=== PATIENT | male | born 1990 | race African-American/Black ===

== ENCOUNTER 2018-10-06 11:17 | Inpatient (IN) | payer MEDICAID ==
[~2018-10-06] VITALS: Ht 170.2 cm; Wt 72.6 kg
[2018-10-06 11:22] VITALS: BP_SYST 139
[2018-10-06] MEDS ORDERED: levETIRAcetam 1,000 MG in NS 100 ML IV ONE (11:45)
[2018-10-06] MEDS ORDERED: LORazepam 2 MG/ML VIAL (FOR ER USE) IVP ONE (12:00)
[2018-10-06 12:05] LABS: BASOPHILS % (AUTO) 0.3 % (0.0-2.0); EOSINOPHILS % (AUTO) 0.2 % (0.0-4.0); HEMATOCRIT 47.8 % (36-54); HEMOGLOBIN 14.6 g/dL (14.0-18.0); LYMPHOCYTES # (AUTO) 0.5 K/uL (1.0-5.5); LYMPHOCYTES % (AUTO) 5.7 % (20.5-51.5); MEAN CORPUSCULAR HEMOGLOBIN 24 pg (27-31); MEAN CORPUSCULAR HGB CONC 31 % (32-36); MEAN CORPUSCULAR VOLUME 78 fL (79.0-98.0); MONOCYTES # (AUTO) 0.2 K/uL (0.0-1.0); MONOCYTES % (AUTO) 1.7 % (1.7-9.3); NEUTROPHILS # (AUTO) 8.6 K/uL (1.8-7.7); NEUTROPHILS % (AUTO) 92.1 % (40.0-70.0); PLATELET COUNT (AUTO) 236 K/uL (130-430); RED BLOOD CELL COUNT(AUTO) 6.13 MIL/uL (4.2-6.2); RED CELL DISTRIBUTION WIDTH 12.7 % (9.0-15.0); WHITE BLOOD COUNT (AUTO) 9.3 K/uL (4.8-10.8)
[2018-10-06] MEDS ORDERED: LORazepam 2 MG/ML VIAL (FOR ER USE) ONE (12:06)
[2018-10-06 12:09] LABS: CALCIUM 9.6 mg/dL (8.4-11.0); CREATININE 1.47 mg/dL (0.55-1.30); POTASSIUM 5.4 mmol/L (3.5-5.1)
[2018-10-06 12:14] LABS: ALBUMIN 4.5 g/dL (3.4-4.8); TOTAL BILIRUBIN 0.7 mg/dL (0.0-1.0)
[2018-10-06] MEDS ORDERED: LORazepam 2 MG/ML VIAL IVP PRN (14:30)
[2018-10-06 14:44] VITALS: BP_SYST 109
[2018-10-06] MEDS: D5NS 1,000 ML IV SCH (16:07)
[2018-10-06] MEDS ORDERED: levETIRAcetam 500 MG TABLET PO ONE (18:00)
[2018-10-06 20:00] VITALS: BP_SYST 128
[2018-10-06] MEDS ORDERED: levETIRAcetam 1,000 MG in NS 100 ML IV SCH (21:00)
[2018-10-07 00:28] VITALS: BP_SYST 104
[2018-10-07] MEDS: D5NS 1,000 ML IV SCH ×2 (04:56→14:55)
[2018-10-07 08:00] VITALS: BP_SYST 128
[2018-10-07] MEDS: levETIRAcetam 1,000 MG in NS 100 ML IV SCH ×2 (08:39→21:09)
[2018-10-07] MEDS ORDERED: levETIRAcetam 1,000 MG in NS 100 ML IV SCH (09:00)
[2018-10-07 11:17] LABS: BASOPHILS # (AUTO) 0.1 K/uL (0.0-0.2); BASOPHILS % (AUTO) 1.9 % (0.0-2.0); EOSINOPHILS % (AUTO) 0.5 % (0.0-4.0); HEMATOCRIT 38.4 % (36-54); HEMOGLOBIN 11.8 g/dL (14.0-18.0); LYMPHOCYTES # (AUTO) 1.5 K/uL (1.0-5.5); LYMPHOCYTES % (AUTO) 25.4 % (20.5-51.5); MEAN CORPUSCULAR HEMOGLOBIN 24 pg (27-31); MEAN CORPUSCULAR HGB CONC 31 % (32-36); MEAN CORPUSCULAR VOLUME 77 fL (79.0-98.0); MONOCYTES # (AUTO) 0.3 K/uL (0.0-1.0); MONOCYTES % (AUTO) 4.4 % (1.7-9.3); NEUTROPHILS % (AUTO) 67.8 % (40.0-70.0); PLATELET COUNT (AUTO) 190 K/uL (130-430); RED BLOOD CELL COUNT(AUTO) 4.97 MIL/uL (4.2-6.2); RED CELL DISTRIBUTION WIDTH 12.3 % (9.0-15.0); WHITE BLOOD COUNT (AUTO) 5.9 K/uL (4.8-10.8)
[2018-10-07 11:30] LABS: CALCIUM 8.6 mg/dL (8.4-11.0); CREATININE 1.05 mg/dL (0.55-1.30); POTASSIUM 3.9 mmol/L (3.5-5.1)
[2018-10-07 11:34] LABS: ALBUMIN 3.4 g/dL (3.4-4.8); TOTAL BILIRUBIN 1.5 mg/dL (0.0-1.0)
[2018-10-07 12:24] VITALS: BP_SYST 123
[2018-10-07 16:13] VITALS: BP_SYST 132
[2018-10-07 19:41] VITALS: BP_SYST 120
[2018-10-08] MEDS: D5NS 1,000 ML IV SCH ×2 (00:19→07:45)
[2018-10-08 00:33] VITALS: BP_SYST 118
[2018-10-08 04:42] LABS: BARBITURATE, URINE NEGATIVE (NEG <=200); BENZODIAZEPINE, URINE POSITIVE (NEG <=150); CANNABINOID, URINE POSITIVE (NEG <=50); COCAINE, URINE NEGATIVE (NEG <=150); METHAMPHETAMINES SCREEN,URINE NEGATIVE (NEG <=500); OPIATE, URINE NEGATIVE (NEG <=100); PHENCYCLIDINE SCREEN,URINE NEGATIVE (NEG <=25); UR TRICYCLIC ANTIDEPRESSANTS NEGATIVE (NEG <=300); URINE AMPHETAMINE NEGATIVE (NEG <=500); URINE METHADONE NEGATIVE (NEG <=200); URINE OXYCODONE SCREEN NEGATIVE (NEG <=100); URINE PROPOXYPHENE SCREEN NEGATIVE (NEG <=300)
[2018-10-08] MEDS: levETIRAcetam 1,000 MG in NS 100 ML IV SCH (08:11)
[2018-10-08 08:29] VITALS: BP_SYST 130
[2018-10-08 09:48] VITALS: BP_SYST 130
[2018-10-08] MEDS ORDERED: LEVE1000 PO (09:51)
== END 2018-10-08 10:15 | disposition home or self-care (01) | DRG 53 ==
LOC: SED 11:17 → SMU 14:17
PROVIDERS: ADMIT Internal Medicine Hospice and Palliative Medicine; ATTEND Internal Medicine Hospice and Palliative Medicine
DX: G40.909 Epilepsy, unspecified, not intractable, without status epilepticus (principal); E87.5 Hyperkalemia; F12.10 Cannabis abuse, uncomplicated; Z91.14 Patient's other noncompliance with medication regimen
CPT/HCPCS: 36415; 70450-TC; 70551; 80053; 80307; 85025; 95816; 96365; 96375; 99285; J1953; J2060; J7042

== ENCOUNTER 2019-02-08 17:13 | Emergency (ER) | payer SELFPAY ==
[~2019-02-08] VITALS: Ht 172.7 cm; Wt 68.0 kg
[~2019-02-08 17:13] MED LIST: LEVE1000 PO
[2019-02-08 17:15] VITALS: BP_SYST 115
[2019-02-08 17:34] LABS: BASOPHILS # (AUTO) 0.1 K/uL (0.0-0.2); BASOPHILS % (AUTO) 0.7 % (0.0-2.0); EOSINOPHILS % (AUTO) 0.2 % (0.0-4.0); HEMATOCRIT 47.5 % (36-54); HEMOGLOBIN 14.2 g/dL (14.0-18.0); LYMPHOCYTES # (AUTO) 1.8 K/uL (1.0-5.5); MEAN CORPUSCULAR HEMOGLOBIN 24 pg (27-31); MEAN CORPUSCULAR HGB CONC 30 % (32-36); MEAN CORPUSCULAR VOLUME 79 fL (79.0-98.0); MONOCYTES # (AUTO) 0.3 K/uL (0.0-1.0); NEUTROPHILS # (AUTO) 8.4 K/uL (1.8-7.7); NEUTROPHILS % (AUTO) 79.1 % (40.0-70.0); PLATELET COUNT (AUTO) 243 K/uL (130-430); RED BLOOD CELL COUNT(AUTO) 6.04 MIL/uL (4.2-6.2); RED CELL DISTRIBUTION WIDTH 13.6 % (9.0-15.0); WHITE BLOOD COUNT (AUTO) 10.7 K/uL (4.8-10.8)
[2019-02-08 17:49] LABS: CALCIUM 9.3 mg/dL (8.4-11.0); CREATININE 1.79 mg/dL (0.55-1.30); POTASSIUM 4.2 mmol/L (3.5-5.1)
[2019-02-08 17:55] LABS: ALBUMIN 4.2 g/dL (3.4-4.8); TOTAL BILIRUBIN 0.8 mg/dL (0.0-1.0)
[2019-02-08] MEDS ORDERED: KETOROLAC TROMETHAMINE 30 MG VIAL IVP ONE (18:30)
[2019-02-08] MEDS ORDERED: ONDANSETRON HCL 4 MG/2 ML VIAL IVP ONE (18:30)
[2019-02-08] MEDS ORDERED: PHENYTOIN SODIUM INJ 500 MG in NS 100 ML IV ONE (18:45)
[2019-02-08 18:53] LABS: BARBITURATE, URINE NEGATIVE (NEG <=200); BENZODIAZEPINE, URINE NEGATIVE (NEG <=150); CANNABINOID, URINE POSITIVE (NEG <=50); COCAINE, URINE NEGATIVE (NEG <=150); METHAMPHETAMINES SCREEN,URINE NEGATIVE (NEG <=500); OPIATE, URINE NEGATIVE (NEG <=100); PHENCYCLIDINE SCREEN,URINE NEGATIVE (NEG <=25); UR TRICYCLIC ANTIDEPRESSANTS NEGATIVE (NEG <=300); URINE AMPHETAMINE NEGATIVE (NEG <=500); URINE METHADONE NEGATIVE (NEG <=200); URINE OXYCODONE SCREEN NEGATIVE (NEG <=100); URINE PROPOXYPHENE SCREEN NEGATIVE (NEG <=300)
[2019-02-08] MEDS ORDERED: PHENYTOIN SODIUM 250 MG/5 ML INJ. VIAL IV ONE (19:00)
[2019-02-08 19:55] VITALS: BP_SYST 107
== END 2019-02-08 19:55 | disposition home or self-care (01) ==
LOC: SED 17:13
DX: G40.802 Other epilepsy, not intractable, without status epilepticus (principal)
CPT/HCPCS: 36415; 70450; 80053; 80307; 85025; 96365; 96375; 99284; J1165; J1885; J2405

== ENCOUNTER 2019-03-04 14:24 | Emergency (ER) | payer SELFPAY ==
[~2019-03-04] VITALS: Ht 172.7 cm; Wt 79.4 kg
[2019-03-04 14:34] VITALS: BP_SYST 137
--- NOTE | 2019-03-04 14:35 | NUR ---
Pt placed in bed 3
--- NOTE | 2019-03-04 14:36 | NUR ---
Patient arrived via POV, AAOx4, and ambulatory with steady gait. Patient arrived regarding refill of depakote. She states she ran out of refills, and is unable to get into her neurologist for a "few weeks." States last dose was taken yesterday. Patient denies any seizure activity within the past 48 hours. Patient calm and cooperative. Will continue to follow up and monitor.
--- NOTE | 2019-03-04 14:37 | NUR ---
ER at bedside examining patient.
[2019-03-04 14:57] VITALS: BP_SYST 132
--- NOTE | 2019-03-04 14:57 | NUR ---
Patient given written and verbal discharge instructions and verbalizes understanding. ER MD discussed with patient the results and treatment provided. Patient in stable condition. ID arm band removed. Rx of Depakote given. Patient educated on pain management and to follow up with PMD. Pain Scale 2/10 tolerable for patient . Opportunity for questions provided and answered. Medication side effect fact sheet provided.
== END 2019-03-04 14:57 | disposition home or self-care (01) ==
LOC: SED 14:24
DX: Z76.0 Encounter for issue of repeat prescription (principal); R56.9 Unspecified convulsions; R03.0 Elevated blood-pressure reading, without diagnosis of hypertension
CPT/HCPCS: 99283

== ENCOUNTER 2019-12-16 06:44 | Emergency (ER) | payer SELFPAY ==
[~2019-12-16] VITALS: Ht 172.7 cm; Wt 81.6 kg
[2019-12-16 06:45] VITALS: BP_SYST 144
[2019-12-16] MEDS ORDERED: levETIRAcetam 1,000 MG in NS 100 ML IV ONE (08:00)
[2019-12-16] MEDS ORDERED: levETIRAcetam 500 MG TABLET PO ONE (08:00)
[2019-12-16 08:18] VITALS: BP_SYST 144
== END 2019-12-16 08:18 | disposition home or self-care (01) ==
LOC: SED 06:44
DX: R56.9 Unspecified convulsions (principal)
CPT/HCPCS: 99283

== ENCOUNTER 2020-02-08 06:24 | Emergency (ER) | payer SELFPAY ==
[~2020-02-08] VITALS: Ht 172.7 cm; Wt 77.1 kg
--- NOTE | 2020-02-08 06:26 | NUR ---
Patient BIB EMS. C/O seizure x today. Per EMS reported, Patient had clonic-tonic seizure , His mother found on the floor and called 911, started IV 20 G LAC and Given Zofran 4 mg PO, vomitting one episode.
--- NOTE | 2020-02-08 06:26 | NUR ---
Placed in room 2 w/ seizure precaution . Placed on playground monitor, blood pressure machine and pulse oximeter. To gown for exam. Side rails up. Report given to Balbina SAENZ
[2020-02-08 06:27] VITALS: BP_SYST 140
--- NOTE | 2020-02-08 06:30 | NUR ---
Oxygen applied at 4 L per minute per canula. O2 sats 95 % by pulse oximetry.
--- NOTE | 2020-02-08 06:46 | NUR ---
Patient, awake and alert, vss.
--- NOTE | 2020-02-08 06:58 | NUR ---
ER Dr. Holman at bedside examining patient.
[2020-02-08] MEDS ORDERED: levETIRAcetam 1,000 MG in NS 100 ML IV ONE (07:00)
--- NOTE | 2020-02-08 07:00 | NUR ---
Assumed care of patient, report received from RILEY Mortensen. Pt resting in bed, will continue to monitor.
--- NOTE | 2020-02-08 07:03 | NUR ---
X-ray at bedside.
--- NOTE | 2020-02-08 07:03 | NUR ---
Dr. Holman cancel IV medication, Patient refused medication.
[2020-02-08 07:28] VITALS: BP_SYST 140
--- NOTE | 2020-02-08 07:29 | NUR ---
Patient does not wish to proceed with medical care recommended by Dr. Holman. Patient given information related to possible complications, up to and including , which could occur as a result of leaving hospital at this time. Patient verbalizes understanding of risks involved leaving against medical advice. Patient has signed AMA form.
== END 2020-02-08 07:28 | disposition left against medical advice (07) ==
LOC: SED 06:24
DX: G40.909 Epilepsy, unspecified, not intractable, without status epilepticus (principal)
CPT/HCPCS: 71045; 93005; 99283; J1953

== ENCOUNTER 2020-02-08 08:01 | Emergency (ER) | payer SELFPAY ==
[~2020-02-08] VITALS: Ht 167.6 cm; Wt 65.8 kg
--- NOTE | 2020-02-08 08:10 | NUR ---
Patient to ER bed 2 to gown for evaluation. Side rails up.
--- NOTE | 2020-02-08 08:12 | NUR ---
pt was combative upon arrival. Pt was kicking and attempting to hit the staff.
[2020-02-08 08:14] VITALS: BP_SYST 139
[2020-02-08] MEDS ORDERED: PHENYTOIN SODIUM INJ 1,000 MG in NS 100 ML IV ONE (08:15)
[2020-02-08] MEDS ORDERED: LORazepam 2 MG/ML VIAL IVP ONE (08:15)
--- NOTE | 2020-02-08 08:15 | NUR ---
Pt BIB to ER by ambulance after being found down and bystander reported seizure activity. Pt is confused and disoriented. Combative towards staff. V/S stable, pt is afebrile. Will continue to monitor.
--- NOTE | 2020-02-08 08:20 | NUR ---
# 20 gauge angiocath placed to RAC. Use of asceptic technique. Opsite placed over site. Blood return noted. Flushed with 10 cc of normal saline. No evidence of infiltration noted. Patient tolerated well.
[2020-02-08] MEDS ORDERED: LORazepam 2 MG/ML VIAL ONE (08:25)
--- NOTE | 2020-02-08 08:25 | NUR ---
Lab at bedside to draw blood
--- NOTE | 2020-02-08 08:30 | NUR ---
Patient transported to radiology via gurney, accompanied by staff.
[2020-02-08 08:31] LABS: BASOPHILS # (AUTO) 0.1 K/uL (0.0-0.2); BASOPHILS % (AUTO) 0.7 % (0.0-2.0); EOSINOPHILS # (AUTO) 0.2 K/uL (0.0-0.4); EOSINOPHILS % (AUTO) 1.9 % (0.0-4.0); HEMATOCRIT 46.4 % (36-54); HEMOGLOBIN 13.8 g/dL (14.0-18.0); LYMPHOCYTES # (AUTO) 1.9 K/uL (1.0-5.5); LYMPHOCYTES % (AUTO) 18.5 % (20.5-51.5); MEAN CORPUSCULAR HEMOGLOBIN 24 pg (27-31); MEAN CORPUSCULAR HGB CONC 30 % (32-36); MEAN CORPUSCULAR VOLUME 79 fL (79.0-98.0); MONOCYTES # (AUTO) 0.4 K/uL (0.0-1.0); MONOCYTES % (AUTO) 3.8 % (1.7-9.3); NEUTROPHILS # (AUTO) 7.8 K/uL (1.8-7.7); NEUTROPHILS % (AUTO) 75.1 % (40.0-70.0); PLATELET COUNT (AUTO) 188 K/uL (130-430); RED BLOOD CELL COUNT(AUTO) 5.84 MIL/uL (4.2-6.2); RED CELL DISTRIBUTION WIDTH 13.3 % (9.0-15.0); WHITE BLOOD COUNT (AUTO) 10.4 K/uL (4.8-10.8)
[2020-02-08] MEDS ORDERED: PHENYTOIN SODIUM 250 MG/5 ML INJ. VIAL IV ONE (08:36)
[2020-02-08 08:41] LABS: ANION GAP 17 (5-15); CALCIUM 8.8 mg/dL (8.4-11.0); CHLORIDE 104 mmol/L (98-107); GLUCOSE 145 mg/dL (70-99); POTASSIUM 3.7 mmol/L (3.5-5.1); SODIUM SERUM 140 mmol/L (136-145); UREA NITROGEN, BLOOD 9 mg/dL (8-21)
[2020-02-08 08:42] LABS: GFR AFRICAN AMERICAN 58 mL/min (>90)
[2020-02-08 08:44] LABS: PROTHROMBIN TIME 10.3 SECS (9.5-12.5)
[2020-02-08 08:59] LABS: ALANINE AMINOTRANSFERASE 35 U/L (12-78); ASPARTATE AMINOTRANSFERASE 37 U/L (10-37); TOTAL BILIRUBIN 0.6 mg/dL (0.0-1.0)
--- NOTE | 2020-02-08 08:59 | NUR ---
Attempted EKG, pt refused
[2020-02-08 09:00] LABS: ALCOHOL, BLOOD < 3 mg/dL (<10); VALPROIC ACID < 3 ug/mL (50-100)
[2020-02-08] MEDS ORDERED: NACL 0.9% 1,000 ML IV ONE (09:15)
--- NOTE | 2020-02-08 10:30 | NUR ---
Patient given written and verbal discharge instructions and verbalizes understanding. ER MD discussed with patient the results and treatment provided. Patient in stable condition. ID arm band removed. IV catheter removed intact and dressing applied, no active bleeding. Rx of Depakote given. Patient educated on pain management and to follow up with PMD. Pain Scale 0. Opportunity for questions provided and answered. Medication side effect fact sheet provided.
[2020-02-08 10:31] VITALS: BP_SYST 139
== END 2020-02-08 10:31 | disposition home or self-care (01) ==
LOC: SED 08:01
DX: R56.9 Unspecified convulsions (principal)
CPT/HCPCS: 36415; 70450; 71045; 80053; 80164; 82140; 83605; 83880; 84439; 84484; 85025; 85610; 87040; 93005; 96365; 96375; 99285; G0482; J1165; J2060; J7030

== ENCOUNTER 2020-03-18 13:11 | Emergency (ER) | payer BC ==
[~2020-03-18] VITALS: Ht 175.3 cm; Wt 79.4 kg
[2020-03-18 13:11] VITALS: BP_SYST 118
[2020-03-18 13:45] LABS: BASOPHILS % (AUTO) 0.3 % (0.0-2.0); EOSINOPHILS % (AUTO) 0.2 % (0.0-4.0); HEMATOCRIT 48.6 % (36-54); HEMOGLOBIN 14.1 g/dL (14.0-18.0); LYMPHOCYTES # (AUTO) 1.4 K/uL (1.0-5.5); LYMPHOCYTES % (AUTO) 14.8 % (20.5-51.5); MEAN CORPUSCULAR HEMOGLOBIN 24 pg (27-31); MEAN CORPUSCULAR HGB CONC 29 % (32-36); MEAN CORPUSCULAR VOLUME 82 fL (79.0-98.0); MONOCYTES # (AUTO) 0.2 K/uL (0.0-1.0); MONOCYTES % (AUTO) 2.5 % (1.7-9.3); NEUTROPHILS # (AUTO) 7.9 K/uL (1.8-7.7); NEUTROPHILS % (AUTO) 82.2 % (40.0-70.0); PLATELET COUNT (AUTO) 141 K/uL (130-430); RED BLOOD CELL COUNT(AUTO) 5.92 MIL/uL (4.2-6.2); RED CELL DISTRIBUTION WIDTH 14.3 % (9.0-15.0); WHITE BLOOD COUNT (AUTO) 9.6 K/uL (4.8-10.8)
[2020-03-18 14:05] LABS: CREATININE 1.49 mg/dL (0.55-1.30); POTASSIUM 4.3 mmol/L (3.5-5.1)
[2020-03-18 14:09] LABS: ALBUMIN 3.7 g/dL (3.4-4.8); TOTAL BILIRUBIN 0.4 mg/dL (0.0-1.0)
[2020-03-18] MEDS ORDERED: levETIRAcetam 1,000 MG in NS 100 ML IV ONE (14:30)
[2020-03-18 16:55] VITALS: BP_SYST 118
== END 2020-03-18 16:55 | disposition home or self-care (01) ==
LOC: SED 13:11
DX: R56.9 Unspecified convulsions (principal)
CPT/HCPCS: 36415; 80053; 80164; 85025; 93005; 99284; J1953

== ENCOUNTER 2020-05-30 07:50 | Emergency (ER) | payer BC ==
[~2020-05-30] VITALS: Ht 170.2 cm; Wt 59.0 kg
[2020-05-30 08:01] VITALS: BP_SYST 158
--- NOTE | 2020-05-30 08:06 | NUR ---
Placed in room 2 . Placed on cardiac catheterization technologist, blood pressure machine and pulse oximeter. To gown for exam. Side rails up. Report given to RILEY Bautista.
[2020-05-30] MEDS ORDERED: levETIRAcetam 500 MG TABLET PO ONE (08:15)
--- NOTE | 2020-05-30 08:15 | NUR ---
RECEIVED AND IN ROOM, BIB MEDICS FROM HOME FOR SEIZURE, UPON ARRIVAL HE IS RESTLESS, RESP UNLABORED, SKIN WARM AND DRY. AAOX3, VSS. IV HL PLACED , LABS OBTAINED.
--- NOTE | 2020-05-30 08:30 | NUR ---
UP AMBULATING TO BATHROOM, PT STEADY GAIT, PLACED IN BED AND INFORMED TO ASK FOR HELP IF WANTING TO AMBULATE
--- NOTE | 2020-05-30 08:50 | NUR ---
SLEEPING, NO DISTRESS, EASILY AROUSED, SR ON MONITOR NO ECTOPY.
--- NOTE | 2020-05-30 09:05 | NUR ---
CHERI [phone] SPOKE WITH MOTHER, SHE WILL COME TO STAFF RN HER SON UPON DISCHARGE
[2020-05-30 10:00] VITALS: BP_SYST 136
--- NOTE | 2020-05-30 10:01 | NUR ---
Patient given written and verbal discharge instructions and verbalizes understanding. ER MD discussed with patient the results and treatment provided. Patient in stable condition. ID arm band removed. IV catheter removed intact and dressing applied, no active bleeding. Rx of KEPPRA given. Patient educated on pain management and to follow up with PMD. Pain Scale 2/10 Opportunity for questions provided and answered. Medication side effect fact sheet provided.
== END 2020-05-30 10:00 | disposition home or self-care (01) ==
LOC: SED 07:50
DX: G40.909 Epilepsy, unspecified, not intractable, without status epilepticus (principal)
CPT/HCPCS: 99283

== ENCOUNTER 2020-05-30 13:47 | Emergency (ER) | payer BC ==
[~2020-05-30] VITALS: Ht 170.2 cm; Wt 59.0 kg
[2020-05-30 13:47] VITALS: BP_SYST 134
--- NOTE | 2020-05-30 13:47 | NUR ---
Patient to ER bed 5 to gown for evaluation. Side rails up. Report given to RILEY Moulton.
--- NOTE | 2020-05-30 13:53 | NUR ---
Pt came to ER for KOO rates pain 06/25. Pt had seizure this morning states he does not usually have KOO after seizures and is worried he will have another. Resting in gurney, no distress, VSS.
[2020-05-30] MEDS ORDERED: levETIRAcetam 500 MG TABLET PO ONE (14:00)
[2020-05-30] MEDS ORDERED: ACETAMINOPHEN 325 MG TABLET PO ONE (14:00)
--- NOTE | 2020-05-30 14:00 | NUR ---
ER at bedside examining patient.
--- NOTE | 2020-05-30 14:25 | NUR ---
Patient moved to room 6.
[2020-05-30 15:19] VITALS: BP_SYST 134
--- NOTE | 2020-05-30 15:21 | NUR ---
Patient refused written and verbal discharge instructions and verbalizes understanding. ER MD discussed with patient the results and treatment provided. Patient in stable condition. ID arm band removed. Patient educated on pain management and to follow up with PMD. Pain Scale 0. Opportunity for questions provided and answered. Medication side effect fact sheet provided.
== END 2020-05-30 15:19 | disposition home or self-care (01) ==
LOC: SED 13:47
DX: G40.909 Epilepsy, unspecified, not intractable, without status epilepticus (principal); R51 Headache
CPT/HCPCS: 70450-TC; 99284

== ENCOUNTER 2021-06-27 07:41 | Emergency (ER) | payer SELFPAY ==
[~2021-06-27] VITALS: Ht 177.8 cm; Wt 72.6 kg
[2021-06-27 07:44] VITALS: BP_SYST 115
[2021-06-27] MEDS ORDERED: NACL 0.9% 1,000 ML IV ONE (07:45)
[2021-06-27] MEDS ORDERED: LORazepam 2 MG/ML VIAL IVP ONE (07:45)
[2021-06-27] MEDS ORDERED: LORazepam 2 MG/ML VIAL ONE (07:51)
[2021-06-27 08:09] LABS: CREATININE 1.7 mg/dL (0.55-1.30); POTASSIUM 3.9 mmol/L (3.5-5.1)
[2021-06-27 08:14] LABS: ALBUMIN 4.3 g/dL (3.4-4.8); TOTAL BILIRUBIN 0.9 mg/dL (0.0-1.0)
[2021-06-27 08:15] LABS: BASOPHILS # (AUTO) 0.1 K/uL (0.0-0.2); BASOPHILS % (AUTO) 0.6 % (0.0-2.0); EOSINOPHILS # (AUTO) 0.7 K/uL (0.0-0.4); EOSINOPHILS % (AUTO) 8.1 % (0.0-4.0); HEMATOCRIT 50.5 % (36-54); HEMOGLOBIN 14.8 g/dL (14.0-18.0); LYMPHOCYTES # (AUTO) 5.3 K/uL (1.0-5.5); LYMPHOCYTES % (AUTO) 62.5 % (20.5-51.5); MEAN CORPUSCULAR HEMOGLOBIN 24 pg (27-31); MEAN CORPUSCULAR HGB CONC 29 % (32-36); MEAN CORPUSCULAR VOLUME 80 fL (79.0-98.0); MONOCYTES # (AUTO) 0.4 K/uL (0.0-1.0); MONOCYTES % (AUTO) 4.8 % (1.7-9.3); PLATELET COUNT (AUTO) 243 K/uL (130-430); RED CELL DISTRIBUTION WIDTH 13.5 % (9.0-15.0); WHITE BLOOD COUNT (AUTO) 8.5 K/uL (4.8-10.8)
[2021-06-27] MEDS ORDERED: levETIRAcetam 1,000 MG in NS 90 ML IV ONE (08:15)
[2021-06-27 09:25] VITALS: BP_SYST 115
== END 2021-06-27 09:25 | disposition home or self-care (01) ==
LOC: SED 07:41
DX: R56.9 Unspecified convulsions (principal); Z79.899 Other long term (current) drug therapy
CPT/HCPCS: 36415; 80053; 85025; 96374; 96375; 99284; J1953; J2060

== ENCOUNTER 2022-06-11 22:28 | Emergency (ER) | payer SELFPAY ==
[~2022-06-11] VITALS: Ht 170.2 cm; Wt 74.8 kg
--- NOTE | 2022-06-11 22:50 | NUR ---
COVID SWAB SENT TO LAB.
[2022-06-11 22:51] VITALS: BP_SYST 137
--- NOTE | 2022-06-11 22:55 | NUR ---
DR. GOLDBERG TO SEE PATIENT. PER PATIENT, PATIENT HAS HAD A SORE THROAT WITH FEVER SINCE SATURDAY. NO OTHER SYMPTOMS.
[2022-06-11] MEDS ORDERED: KETOROLAC TROMETHAMINE 15 MG VIAL IM ONE (23:00)
[2022-06-11] MEDS ORDERED: ACETAMINOPHEN 500 MG TABLET PO ONE (23:00)
[2022-06-11] MEDS ORDERED: DEXAMETHASONE SOD PHOSPHATE 10 MG/ML VIAL PO ONE (23:00)
[2022-06-12] MEDS ORDERED: IBUP-1969 PO (00:11)
--- NOTE | 2022-06-12 00:35 | NUR ---
Patient given written and verbal discharge instructions and verbalizes understanding. ER MD discussed with patient the results and treatment provided. Patient in stable condition. ID arm band removed. IV catheter removed intact and dressing applied, no active bleeding. Rx of IBUPROFEN given. Patient educated on pain management and to follow up with PMD. Pain Scale . Opportunity for questions provided and answered. Medication side effect fact sheet provided.
== END 2022-06-12 00:35 | disposition home or self-care (01) ==
LOC: SED 22:28
DX: J02.9 Acute pharyngitis, unspecified (principal); R50.9 Fever, unspecified; Z79.899 Other long term (current) drug therapy; Z20.822 Contact with and (suspected) exposure to COVID-19
CPT/HCPCS: 99283; 87426; 36415; 96372; J1100; J1885